=== PATIENT | male | born 1965 | race Caucasian/White ===

== ENCOUNTER → 2025-01-02 | Outpatient (CLI) | payer OTHER, SELFPAY ==
--- NOTE | 2025-01-02 16:17 | MRI_ITS ---
PROCEDURE: SPINE LUMBAR (ROUTINE) 01/02/2025 REASON FOR EXAM: PAIN, RADICULOPATHY TECHNIQUE: SPINE LUMBAR (ROUTINE) COMPARISON: None. FINDINGS: Vertebrae: Normal alignment. No abnormal vertebral lesion. Alignment: Normal. Conus Medullaris: Unremarkable. L1-L2: No foraminal or canal stenosis. L2-L3: An 8 x 11 x 22 mm left paracentral disc extrusion with cephalad migration compresses the descending nerves within the left subarticular space. Severe left foraminal stenosis and mass-effect upon the exiting nerves. Mild right foramina stenosis. No significant canal stenosis. L3-4: Disc bulge. Facet joint arthropathy. Narrowing of the right subarticular space. Moderate bilateral foramina stenosis. Moderate canal stenosis. L4-5: Disc bulge. Facet joint arthropathy. Ligamentum flavum hypertrophy. Narrowing of the right subarticular space. Moderate bilateral foramina stenosis. Moderate canal stenosis. L5-S1: No significant foraminal or canal stenosis. Sacrum: Unremarkable. MRI/Spine Lumbar (Routine) IMPRESSION: L2-L3, An 8 x 11 x 22 mm left paracentral disc extrusion with cephalad migratio n compresses the descending nerves within the left subarticular space. Severe left foraminal stenosis and mass-effect upon the exi ting nerves. Moderate canal stenosis and moderate bilateral foramina stenosis at L3-L4 and L 4-L5. Reading Location: [facility]
== END | disposition home or self-care (01) ==
PROVIDERS: Referring Provider Student in an Organized Health Care Education/Training Program; Visit Provider Student in an Organized Health Care Education/Training Program
DX: M54.16 Radiculopathy, lumbar region (principal)
CPT/HCPCS: 72148